=== PATIENT | male | born 1960 | race Caucasian/White ===

== ENCOUNTER → 2025-03-25 08:09 | Outpatient (BNVA) | payer MEDICARE, SELFPAY | PROVIDERS: Visit Provider Surgery | DX: D17.1 Benign lipomatous neoplasm of skin and subcutaneous tissue of trunk (principal) | CPT/HCPCS: 99203 ==

== ENCOUNTER 2025-04-20 06:35 | Day surgery (SDC) | payer MEDICARE, SELFPAY ==
[2025-04-20] VITALS (10 sets, daily range): BP systolic 137–158; BP diastolic 82–98; PULSE 63–82; RESP 13–17; TEMP 36.4–36.6; O2SAT 94–98; BMI 24.5
--- NOTE | 2025-04-20 07:02 | P.HPUD_ITS ---
Surgery/Procedure H&P Update DATE OF PROCEDURE: April 20, 2025 DATE H&P PERFORMED: 03/25/25 H&P UPDATE INFORMATION: I have reviewed H&P completed within last 30 days, I have examined patient prior to procedure, No changes to prior documentation, H&P is in [facility] EMR on date indicated and Risks and benefits of the procedure reviewed PLANNED PROCEDURE: Operation Date: 04/20/25 08:30 Proposed Procedures p Excision of Subcutaneous Skin Lesion Mid Back 48574 D17.1(Not Applicable) - Maurice Couch MD
--- NOTE | 2025-04-20 08:06 | P.ANESASSM_ITS ---
Pre-Anesthetic Assessment Height/Weight: Height 1.7 m Weight 71.214 kg Temp Pulse Resp BP Pulse Ox O2 Del Method 97.5 F L 69 17 144/98 98 Room Air 04/20/25 06:58 04/20/25 06:58 04/20/25 06:58 04/20/25 06:58 04/20/25 06:58 04/20/25 06:59 Preop Diagnosis: back mass Operation Date: 04/20/25 08:30 Proposed Procedures p Excision of Subcutaneous Skin Lesion Mid Back 51842 D17.1(Not Applicable) - Maurice Couch MD Was Beta Danielle taken within 24 hours: N/A Was Clonidine taken within 24 hours: N/A Last intake: Intake Last Liquid Date 04/19/25 Last Liquid Time 23:00 Last Solid Date 04/19/25 Last Solid Time 23:00 Social Alcohol and Tobacco Daily weed Exam alert, oriented x 3, clear to auscultation bilaterally and regular rate & rhythm Airway Submandibular: within normal limits Cervical ROM: within normal limits Mallampati: Class II Dentition: false History/ROS No significant history except as noted and No significant complaints Pulmonary Chronic Obstructive Pulmonary Disease and Cough CV/HEM None reported None reported Hepatic None reported GI Gastroesophageal Reflux Disease Metabolic None reported Musc/skel None reported Neuropsych None reported Anesthetic Plan ASA status: 3 Anesthesia: Anesthesia Evaluation and General Risk of > 500 ml blood loss (7ml/kg in children): No Medications/Allergies Home Medications ?Medication ?Instructions ?Recorded ?Confirmed ?Last Taken ?Type No Known Home Medications 03/25/25 10/0 04/02 Unknown History Allergies Allergy/AdvReac Type Severity Reaction Status Date / Time No Known Allergies Allergy Unverified 03/25/25 08:13 Current Medications Generic Name Dose Route Start Last Admin Trade Name Freq PRN Reason Stop Dose Admin Sodium Chloride 1,000 mls @ 30 mls/hr 04/20/25 07:00 04/20/25 07:12 Sodium Chloride 0.9% IV 04/21/25 06:59 30 mls/hr .Q24H JUNI Administration PFSH Anesthesia Social History Smoking and tobacco/nicotine status: current some day tobacco/nicotine user (1 PPD)
[2025-04-20] MEDS: ceFAZolin 2,000 mg SDV 2000 MG IVP (08:35)
[2025-04-20] MEDS: lidocaine-epi 1% PF 1:200,000 30 mL SDV INJECTION (09:02)
[2025-04-20] MEDS: BUPivacaine 0.25% INJ 30 mL INJECTION (09:04)
--- NOTE | 2025-04-20 09:35 | PM.OP ---
Operative Report Date of procedure: April 20, 2025 Pre-op diagnosis: Lipoma of the back Post-op diagnosis: Lipoma of the back, subfascial, measuring 5 x 4 x 2 cm Post-op findings: There was a large lipoma of the back in a subfascial position measuring 5 x 4 x 2 cm Procedure done: excision of back mass subfascial Specimens removed/disposition: Lipoma of the back measuring 5 x 2 x 4 cm Surgeon: Maurice Couch MD Train Control Electronic Technician: KRYSTEN OR STaff Estimated blood loss: 5 Brief History: 65-year-old male who presented to my office for evaluation for back mass. After discussion of risk benefits decided to proceed to the OR for excision. Procedure: Patient was brought into the OR, he was placed in a prone position after general esthesia was given. The back was prepped and draped in the usual sterile fashion. A 4 cm incision was made overlying the area of the lesion. The incision was deepened until the superficial muscular fascia was identified, the fascia was opened and the lesion was immediately visualized. The lesion was circumferentially dissected using electrocautery and blunt dissection. The lesion was delivered through the skin. The lesion was sent to pathology. Hemostasis was achieved. Local anesthesia was infiltrated. The wound was closed in layers using #2-0 Vicryl for the deep fascia, #3-0 Vicryl for the subcutaneous tissue and #4 Monocryl for the skin and Dermabond was applied. At the end of the procedure all counts were correct the patient tolerated well the procedure was transferred to the PACU in stable condition
--- NOTE | 2025-04-20 10:35 | ANE.PACU2 ---
Inpatient post-anesthesia follow up: Airway intact: Yes Vital signs: Temperature 97.8 F Pulse Rate 63 Respiratory Rate 17 Blood Pressure 152/84 Pulse Oximetry 98 Oxygen Delivery Me thod Room Air Oxygen Flow Rate Fraction of Inspir ed Oxygen Hydration adequate: Yes Nausea and vomiting: No Pain level: 1 Mental status: Baseline
== END 2025-04-20 10:30 | disposition home or self-care (01) ==
PROVIDERS: Visit Provider Surgery
PROC: (CPT 21933; principal; 2025-04-20 08:20)
DX: D17.1 Benign lipomatous neoplasm of skin and subcutaneous tissue of trunk (principal); J44.9 Chronic obstructive pulmonary disease, unspecified; K21.9 Gastro-esophageal reflux disease without esophagitis; F17.210 Nicotine dependence, cigarettes, uncomplicated
CPT/HCPCS: 21933; 88304; J0690; J1100; J2250; J2371; J2405; J2704; J3010; J3490; J7030; J9999

== ENCOUNTER → 2025-05-05 08:39 | Outpatient (BNVA) | payer MEDICARE, SELFPAY | PROVIDERS: Visit Provider Surgery | DX: R03.0 Elevated blood-pressure reading, without diagnosis of hypertension (principal); Z98.890 Other specified postprocedural states | CPT/HCPCS: 99024 ==